=== PATIENT | male | born 1965 | race Caucasian/White ===

== ENCOUNTER 2022-07-18 10:01 | Emergency (ER) | payer MEDICAID, SELFPAY ==
[2022-07-18 10:16] VITALS: BP 135/86; PULSE 74; RESP 14; TEMP 36.9; O2SAT 98; BMI 24.3
[2022-07-18 11:00] LABS: Basophils % 0.5 %; Eosinophils # 0.1 10^3/uL (0.0-0.8); Eosinophils % 1.2 %; Hematocrit 41.7 % (42.0-52.0); Hemoglobin 14.2 g/dL (11.7-16.6); Lymphocytes # 0.8 10^3/uL (0.8-4.8); Lymphocytes % 9.4 %; Mean Corpuscular HGB Conc 34.1 g/dL (30.0-36.0); Mean Corpuscular Hemoglobin 32.5 pg (28.0-34.0); Mean Corpuscular Volume 95.4 fl (80-94); Mean Platelet Volume 9.7 fL (7.4-10.4); Monocytes # 0.8 10^3/uL (0.2-0.9); Monocytes % 9.5 %; Neutrophils # 6.63 10^3/uL (1.8-7.7); Neutrophils % 78.8 %; Nucleated Red Blood Cells % 0 %; Platelet Count 237 10^3/cmm (130-400); Red Blood Count 4.37 10^6/uL (4.1-5.3); Red Cell Distribution Width 11.5 % (12.1-15.1); White Blood Count 8.4 10^3/uL (4.0-10.0)
[2022-07-18 11:19] LABS: Anion Gap 15.5 (5-19); Blood Urea Nitrogen 8 mg/dL (6-20); Calcium 9.4 mg/dL (8.5-10.5); Carbon Dioxide 25 mmol/L (22-29); Chloride 103 mmol/L (98-107); Glomerular Filtration Rate 116.7 mL/min (90-130); Glucose 108 mg/dL (65-115); Osmolality Calculated 287 mOsm/kg (285-295); Potassium 4.5 mmol/L (3.5-5.1); Sodium 139 mmol/L (136-145)
--- NOTE | 2022-07-19 06:21 | W.ED.GIBLEED ---
HPI - GI Bleed General: Chief complaint: GI Bleed Stated complaint: Blood in stool Time Seen by Provider: 07/18/22 10:45 History of Present Illness: Patient was assigned to go to one of my rooms. I had signed up for the patient reviewed the nursing note in order basic initial labs patient left without being seen [facility] ED PFSH: Medical History (Updated 07/19/22 @ 00:39 by Ambreen Martínez MD) No pertinent past medical history Course Vital Signs: Vital signs: Vital Signs Temperature 98.5 F 07/18/22 10:16 Pulse Rate 74 07/18/22 10:16 Respiratory Rate 14 07/18/22 10:16 Blood Pressure 135/86 07/18/22 10:16 Pulse Oximetry 98 07/18/22 10:16 Oxygen Delivery Me thod 07/18/22 10:16 MDM - GI Bleed Medical Decision Making Patient left without being seen Lab Data 07/18/22 10:50 07/18/22 10:50 Laboratory Results WBC 8.4 10^3/uL (4.0-10.0) 07/18/22 10:50 RBC 4.37 10^6/uL (4.1-5.3) 07/18/22 10:50 Hgb 14.2 g/dL (11.7-16.6) 07/18/22 10:50 Hct 41.7 % (42.0-52.0) L 07/18/22 10:50 MCV 95.4 fl (80-94) H 07/18/22 10:50 MCH 32.5 pg (28.0-34.0) 07/18/22 10:50 MCHC 34.1 g/dL (30.0-36.0) 07/18/22 10:50 RDW 11.5 % (12.1-15.1) L 07/18/22 10:50 Plt Count 237 10^3/cmm (130-400) 07/18/22 10:50 MPV 9.7 fL (7.4-10.4) 07/18/22 10:50 Neut % (Auto) 78.8 % 07/18/22 10:50 Lymph % (Auto) 9.4 % 07/18/22 10:50 [place] % (Auto) 9.5 % 07/18/22 10:50 Eos % (Auto) 1.2 % 07/18/22 10:50 Baso % (Auto) 0.5 % 07/18/22 10:50 Neut # (Auto) 6.63 10^3/uL (1.8-7.7) 07/18/22 10:50 Lymph # (Auto) 0.8 10^3/uL (0.8-4.8) 07/18/22 10:50 [place] # (Auto) 0.8 10^3/uL (0.2-0.9) 07/18/22 10:50 Eos # (Auto) 0.1 10^3/uL (0.0-0.8) 07/18/22 10:50 Baso # (Auto) 0.0 10^3/uL (0.0-0.1) 07/18/22 10:50 Nucleated RBC % (auto) 0 % 07/18/22 10:50 Nucleated RBCs # 0.0 /100WBC 07/18/22 10:50 Sodium 139 mmol/L (136-145) 07/18/22 10:50 Potassium 4.5 mmol/L (3.5-5.1) 07/18/22 10:50 Chloride 103 mmol/L (98-107) 07/18/22 10:50 Carbon Dioxide 25 mmol/L (22-29) 07/18/22 10:50 Anion Gap 15.5 (5-19) 07/18/22 10:50 BUN 8 mg/dL (6-20) 07/18/22 10:50 Creatinine 0.7 mg/dL (0.7-1.2) 07/18/22 10:50 GFR Calculation 116.7 mL/min (90-130) 07/18/22 10:50 Glucose 108 mg/dL (65-115) 07/18/22 10:50 Calculated Osmolality 287 mOsm/kg (285-295) 07/18/22 10:50 Calcium 9.4 mg/dL (8.5-10.5) 07/18/22 10:50 Discharge Plan Discharge Patient Disposition: Left Without Being Seen 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
== END 2022-07-18 12:41 | disposition left against medical advice (07) ==
PROVIDERS: Physician Assistant; Emergency Provider Family Medicine; PCP Nurse Practitioner
DX: K92.1 Melena (principal); Z53.21 Procedure and treatment not carried out due to patient leaving prior to being seen by health care provider
CPT/HCPCS: 80048; 85025

== ENCOUNTER 2022-07-18 23:03 | Emergency (ER) | payer MEDICAID, SELFPAY ==
[2022-07-18 23:10] VITALS: BP 146/98; PULSE 88; RESP 18; TEMP 37.1; O2SAT 100; BMI 23.6
--- NOTE | 2022-07-18 23:25 | ED_ITS ---
HPI - Nausea/Vomiting/Diarrhea General: Chief complaint: Nausea/Vomiting/Diarrhea Stated complaint: blood in stool, fever Time Seen by Provider: 07/18/22 23:07 Source: patient Mode of arrival: ambulatory Limitations: no limitations History of Present Illness: 56-year-old male who states he has been having abdominal cramping along with diarrhea over the last 3 days he states that yesterday it was severe he states today is actually improving he said he had some very slight pinkish blood at times but none currently he had low-grade fevers he denies any worsening proving factors denies any sick contacts. Associated nausea: Yes Associated symtoms: Reports nausea; Denies chest pain, dysuria or headache(s) Review of Systems Const: Denies: fever(s), chills, body aches or change in appetite Eyes: Denies: blurry vision or eye discomfort ENMT: Denies: throat pain or dental pain Card: Denies: chest pain Resp: Denies: dyspnea GI: Reports: nausea and diarrhea : Denies: dysuria Musc: Denies: neck pain or back pain Skin/Breast: Denies: rash Neuro: Denies: headache(s) Psych: Denies: depression R[place]hawn/Lymph: Denies: easy bruising All/Imm: Denies: urticaria PFSH ED PFSH: Medical History (Updated 07/19/22 @ 00:39 by Ambreen Martínez MD) No pertinent past medical history Physical Exam Const: COMMON NORMALS: no acute distress, patient oriented x3 and healthy appearing HENMT: COMMON NORMALS: normocephalic and atraumatic HEAD & SCALP: normocephalic and atraumatic Eye: COMMON NORMALS: Equal, round and reactive pupils present and EOMs intact bilaterally PUPIL: Yes Equal, round and reactive pupils present Neck/C-Spine: COMMON NORMALS: full ROM and supple Chest: COMMONS NORMALS: normal inspection of the chest and normal palpation of entire chest wall Resp: COMMON NORMALS: normal respiratory effort, No retractions, No use of accessory muscles and clear to auscultation bilaterally AUSCULTATION: clear to auscultation bilaterally Cardio: COMMON NORMALS: regular rate, regular rhythm and No murmurs present (Cardio) RATE: regular rate RHYTHM: regular rhythm GI: COMMON NORMALS: Normal to inspection, nondistended, normoactive bowel sounds present, Soft to palpation, non-tender and no masses PALPATION: Yes Soft to palpation Extremity: COMMON NORMALS: normal to inspection and full ROM Neuro: COMMON NORMALS: patient oriented x3, moves all extremities and no focal motor deficits Psych: COMMON NORMALS: mental status grossly normal, Normal thought process present and cooperative THOUGHT PROCESS: Normal thought process present Skin: COMMON NORMALS: no rashes or lesions noted and no wounds GENERAL SKIN EXAM: no rashes or lesions noted Course Vital Signs: Vital signs: Vital Signs Temperature 98.7 F 07/19/22 00:14 Pulse Rate 88 07/19/22 00:14 Respiratory Rate 18 07/19/22 00:14 Blood Pressure 146/98 07/19/22 00:14 Pulse Oximetry 100 07/19/22 00:14 Oxygen Delivery Me thod 07/18/22 23:10 MDM - Nausea/Vomiting/Diarrhea Medical Decision Making Patient presents with diarrhea is likely viral in origin his white count and blood work is all normal we will send his stool for culture and C. difficile he stable for discharge at this point return if worsening Lab Data 07/18/22 23:55 07/18/22 23:55 Laboratory Results WBC 9.6 10^3/uL (4.0-10.0) 07/18/22 23:55 RBC 4.32 10^6/uL (4.1-5.3) 07/18/22 23:55 Hgb 14.7 g/dL (11.7-16.6) 07/18/22 23:55 Hct 40.6 % (42.0-52.0) L 07/18/22 23:55 MCV 94.0 fl (80-94) 07/18/22 23:55 MCH 34.0 pg (28.0-34.0) 07/18/22 23:55 MCHC 36.2 g/dL (30.0-36.0) H D 07/18/22 23:55 RDW 11.4 % (12.1-15.1) L 07/18/22 23:55 Plt Count 259 10^3/cmm (130-400) 07/18/22 23:55 MPV 10.4 fL (7.4-10.4) 07/18/22 23:55 Neut % (Auto) 78.4 % 07/18/22 23:55 Lymph % (Auto) 9.4 % 07/18/22 23:55 [place] % (Auto) 9.1 % 07/18/22 23:55 Eos % (Auto) 2.5 % 07/18/22 23:55 Baso % (Auto) 0.4 % 07/18/22 23:55 Neut # (Auto) 7.48 10^3/uL (1.8-7.7) 07/18/22 23:55 Lymph # (Auto) 0.9 10^3/uL (0.8-4.8) 07/18/22 23:55 [place] # (Auto) 0.9 10^3/uL (0.2-0.9) 07/18/22 23:55 Eos # (Auto) 0.2 10^3/uL (0.0-0.8) 07/18/22 23:55 Baso # (Auto) 0.0 10^3/uL (0.0-0.1) 07/18/22 23:55 Nucleated RBC % (auto) 0 % 07/18/22 23:55 Nucleated RBCs # 0.0 /100WBC 07/18/22 23:55 Sodium 140 mmol/L (136-145) 07/18/22 23:55 Potassium 4.1 mmol/L (3.5-5.1) 07/18/22 23:55 Chloride 103 mmol/L (98-107) 07/18/22 23:55 Carbon Dioxide 26 mmol/L (22-29) 07/18/22 23:55 Anion Gap 15.1 (5-19) 07/18/22 23:55 BUN 9 mg/dL (6-20) 07/18/22 23:55 Creatinine 0.7 mg/dL (0.7-1.2) 07/18/22 23:55 GFR Calculation 116.7 mL/min (90-130) 07/18/22 23:55 Glucose 103 mg/dL (65-115) 07/18/22 23:55 Calculated Osmolality 289 mOsm/kg (285-295) 07/18/22 23:55 Calcium 9.6 mg/dL (8.5-10.5) 07/18/22 23:55 Total Bilirubin 0.6 mg/dL (0.15-1.2) 07/18/22 23:55 AST 23 U/L (0-40) 07/18/22 23:55 ALT 17 U/L (0-41) 07/18/22 23:55 Alkaline Phosphatase 54 U/L (40-130) 07/18/22 23:55 Total Protein 7.6 g/dL (6.6-8.7) 07/18/22 23:55 Albumin 4.5 g/dL (3.5-5.2) 07/18/22 23:55 Globulin 3.1 g/dL (1.3-4.6) 07/18/22 23:55 Discharge Plan Discharge Patient Disposition: Home Clinical Impression: Diarrhea Condition: Stable Prescriptions: New dicyclomine 20 mg tablet 20 mg PO TID PRN (Reason: diarrhea) Qty: 20 0RF Discharge Orders: Discharge ED (Routine); Ordered 07/19/22 Ordered By: Ambreen Martínez Referrals: Brooklyn Barrios FNP [Primary Care Provider] - 1-3 days Discharge Diet: Advance as tolerated Discharge Activity: Resume usual activity Patient Instructions: Acute Diarrhea (ED) Coding Level of Care Code ED [employer] for [employer] Fwd Exam Comprehensive
[2022-07-18] MEDS: diphenoxylate/atropine Tablet 1 TAB PO (23:55)
[2022-07-18] MEDS: ondansetron 2 mg/ML SDV 2 mL 4 MG IVP (23:56)
[2022-07-18] MEDS: sodium chloride 0.9% 1,000 ML 999 ML IV (23:56)
[2022-07-19 00:14] VITALS: BP 146/98; PULSE 88; RESP 18; TEMP 37.1; O2SAT 100
[2022-07-19 00:17] LABS: Basophils % 0.4 %; Eosinophils # 0.2 10^3/uL (0.0-0.8); Eosinophils % 2.5 %; Hematocrit 40.6 % (42.0-52.0); Hemoglobin 14.7 g/dL (11.7-16.6); Lymphocytes # 0.9 10^3/uL (0.8-4.8); Lymphocytes % 9.4 %; Mean Corpuscular HGB Conc 36.2 g/dL (30.0-36.0); Mean Platelet Volume 10.4 fL (7.4-10.4); Monocytes # 0.9 10^3/uL (0.2-0.9); Monocytes % 9.1 %; Neutrophils # 7.48 10^3/uL (1.8-7.7); Neutrophils % 78.4 %; Nucleated Red Blood Cells % 0 %; Platelet Count 259 10^3/cmm (130-400); Red Blood Count 4.32 10^6/uL (4.1-5.3); Red Cell Distribution Width 11.4 % (12.1-15.1); White Blood Count 9.6 10^3/uL (4.0-10.0)
[2022-07-19 00:29] LABS: Alanine Aminotransferase 17 U/L (0-41); Albumin Level 4.5 g/dL (3.5-5.2); Alkaline Phosphatase 54 U/L (40-130); Anion Gap 15.1 (5-19); Aspartate Amino Transferase 23 U/L (0-40); Blood Urea Nitrogen 9 mg/dL (6-20); Calcium 9.6 mg/dL (8.5-10.5); Carbon Dioxide 26 mmol/L (22-29); Chloride 103 mmol/L (98-107); Globulin 3.1 g/dL (1.3-4.6); Glomerular Filtration Rate 116.7 mL/min (90-130); Glucose 103 mg/dL (65-115); Osmolality Calculated 289 mOsm/kg (285-295); Potassium 4.1 mmol/L (3.5-5.1); Sodium 140 mmol/L (136-145); Total Bilirubin 0.6 mg/dL (0.15-1.2); Total Protein 7.6 g/dL (6.6-8.7)
[2022-07-19 00:48] VITALS: BP 146/98; PULSE 88; RESP 18; TEMP 37.1; O2SAT 100
== END 2022-07-19 00:47 | disposition home or self-care (01) ==
PROVIDERS: Emergency Provider Emergency Medicine; PCP Nurse Practitioner Family
DX: R19.7 Diarrhea, unspecified (principal)
CPT/HCPCS: 80053; 85025; 87493; 87506; 96361; 96374; 99284; J2405; J7030

== ENCOUNTER 2023-05-19 15:07 | Outpatient (CLI) | payer BC, MEDICAID, SELFPAY ==
--- NOTE | 2023-05-19 15:16 | CT_ITS ---
WS: [id number] CT chest w con* [id number] HISTORY: HEMOPTYSIS TECHNIQUE: Axial imaging performed through the thorax. Coronal and sagittal reformats are submitted. All CT scans at [facility] use at least one of these dose optimization techniques: automated exposure control; mA and/or kV adjustment per patient size (includes targeted exams where dose is mat ched to clinical indication); or iterative reconstruction. CONTRAST: Omnipaque 350; 100 mL IV. DLP: 304.15 mGy.cm COMPARISON: None available. Lungs and central airway: Normal. No bronchiectasis. No mass or nodule. No pneumonia. Pleura: Normal. No pleural effusion. Heart and pericardium: Normal size heart with no pericardial effusion. Mediastinum and boris: No mediastinum or hilar adenopathy. Vessels: Normal size aortic and pulmonary artery. No coronary artery calcifications. Chest wall and lower neck: No soft tissue masses. Upper abdomen: Normal. Osseous structures: No destructive process. IMPRESSION: Negative chest CT. No pulmonary mass or nodules. No bronchiectasis.
[2023-05-19] MEDS: iohexol 350 mg/mL 500 mL Btl (per mL) IV (15:49)
== END 2023-05-19 15:08 | disposition home or self-care (01) ==
PROVIDERS: PCP Nurse Practitioner Family; Visit Provider Nurse Practitioner Family
DX: R04.2 Hemoptysis (principal)
CPT/HCPCS: 71260; Q9967

== ENCOUNTER 2023-08-05 13:07 | Outpatient (CLI) | payer BC, MEDICAID, SELFPAY ==
--- NOTE | 2023-08-05 13:13 | CT_ITS ---
WS: [id number] CT ABDOMEN AND PELVIS WITH CONTRAST HISTORY: RLQ DISCOMFORT TECHNIQUE: Imaging performed of the abdomen and pelvis with IV contrast. Single phase imaging of the abdomen. Coronal and sagittal reformats are submitted. All CT scans at [facility] use at [address] one of these dose optimization techniques: automated exposure control; mA and/or kV adjustment per patient size (includes targeted exams where dose is matched to clinical indication); or iterative re construction. IV CONTRAST: Omnipaque 350; 100 mL IV. Oral contrast: Yes. DLP: 306.76 mGy.cm COMPARISON: None available. Lower thorax: Lung bases are clear. Heart is normal size. 2 Liver/biliary system: Normal size with no intrahepatic dilatation. Gallbladder: Normal. No gallstones or wall thickening. No pericholecystic fluid. Pancreas: Normal size pancreas and pancreatic duct. No adjacent inflammation. Spleen: Normal size spleen. No mass or infarct. Adrenal glands: Normal. Right kidney: Normal. Left kidney: Normal. Aorta: Normal. Lymphadenopathy: None. Free fluid: None. GI tract: There is inflammatory process in the RIGHT lower quadrant. There is inflammation surroundin g the terminal ileum with mucosal thickening and edema. The appendix is not definitely identified. I suspect the appendix is within this inflammatory collection. There is no free fluid and no abscess. N o lymph nodes are identified. No obstructive pattern. Abdominal wall: Unremarkable abdominal wall. No hernia. Pelvis: No free fluid or adenopathy within the pelvis. Bones: Unremarkable. IMPRESSION: 1. Mild inflammatory process in the RIGHT lower quadrant involving the terminal ileum. The appendix is not definitely identified but I suspect this is within the inflammatory process. There is wall thi ckening and mild inflammation. Differential includes distal terminal ileitis with secondary inflammat ion of the appendix. Appendicitis is not completely excluded but there is no adjacent fluid collectio n. No abscess or free fluid at this time. 2. No GI tract obstruction. No renal obstruction. Notified Evelio Edwards MD at 08/05/2023 3:04 PM. Discussed findings with the patient prior to him leaving the radiology department. Dr. Edwards will c ontact him. Patient is aware to return to the emergency department if there is any change in symptoms or progression of symptoms.
[2023-08-05] MEDS: iohexol 350 mg/mL 500 mL Btl (per mL) IV (14:49)
[2023-08-05] MEDS: iohexol 350 mg/mL 500 mL Btl (per mL) PO (14:49)
== END 2023-08-05 13:08 | disposition home or self-care (01) ==
LOC: RAD 13:07
PROVIDERS: PCP Nurse Practitioner Family; Visit Provider Internal Medicine
DX: R10.31 Right lower quadrant pain (principal); R93.3 Abnormal findings on diagnostic imaging of other parts of digestive tract
CPT/HCPCS: 74177; Q9967

== ENCOUNTER 2023-11-21 10:44 | Emergency (ER) | payer BC, MEDICAID, SELFPAY ==
[2023-11-21 10:46] VITALS: BP 151/91; PULSE 72; RESP 14; TEMP 36.9; O2SAT 98
--- NOTE | 2023-11-21 10:49 | ECG_ITS ---
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 Measurements Intervals [place] Rate: 72 P: 73 VT: 151 QRS: 87 QRSD: 95 T: 67 QT: 361 QTc: 397 Interpretive Statements SINUS RHYTHM No previous ECG available for comparison Electronically Signed On 11-22-2023 18:35:50 CDT by Lesa Rivers M.D. [id number]
[2023-11-21 11:13] VITALS: BP 133/92; PULSE 86; RESP 16; O2SAT 100
--- NOTE | 2023-11-21 11:15 | PC.PHAR ---
PT STATES HAD HERNIA SURGERY LAST MONTH BUT ONLY TOOK A FEW PAIN MEDS AT THAT TIME. PT STATES ONLY USES TYLENOL AND IBUPROFEN FOR PAIN AND TAKES A MULTIVITAMIN AND PROBIOTIC. NO CURRENT MAINTENANCE MEDICATIONS.
--- NOTE | 2023-11-21 12:14 | XRR_ITS ---
PROCEDURE INFORMATION: Exam: XR Chest Exam date and time: 11/21/2023 12:36 PM Age: 58 years old Clinical indication: Other: Rapid heartrate; Arrythmia; No cardiac HX TECHNIQUE: Imaging protocol: Radiologic exam of the chest. Views: 1 view. COMPARISON: CT chest w con* [id number] 05/19/2023 3:46 PM FINDINGS: Lungs: Unremarkable. No consolidation. Pleural spaces: Unremarkable. No pleural effusion. No pneumothorax. Heart/Mediastinum: Unremarkable. No cardiomegaly. Bones/joints: Unremarkable. XR/XR chest 1V portable [id number] IMPRESSION: No acute findings.
[2023-11-21 12:44] LABS: Basophils % 0.7 %; Eosinophils # 0.1 10^3/uL (0.0-0.8); Eosinophils % 1.9 %; Hematocrit 43.2 % (37-53); Lymphocytes % 17.2 %; Mean Corpuscular HGB Conc 34.5 g/dL (30-55); Mean Corpuscular Hemoglobin 32.5 pg (27-33); Mean Corpuscular Volume 94.3 fl (82-101); Mean Platelet Volume 10.2 fL (7.4-10.4); Monocytes # 0.5 10^3/uL (0.2-0.9); Monocytes % 8.5 %; Neutrophils # 4.19 10^3/uL (1.8-7.7); Neutrophils % 71.5 %; Nucleated Red Blood Cells % 0 %; Platelet Count 259 10^3/cmm (157-399); Red Blood Count 4.58 10^6/uL (3.85-5.65); Red Cell Distribution Width 11.9 % (12.1-15.1); White Blood Count 5.86 10^3/uL (3.29-11.43)
[2023-11-21 13:04] LABS: Alanine Aminotransferase 16 U/L (0-41); Albumin Level 4.7 g/dL (3.5-5.2); Alkaline Phosphatase 51 U/L (40-130); Anion Gap 15.7 (5-19); Aspartate Amino Transferase 20 U/L (0-40); Blood Urea Nitrogen 9 mg/dL (6-20); Calcium 9.3 mg/dL (8.5-10.5); Carbon Dioxide 25 mmol/L (22-29); Chloride 105 mmol/L (98-107); Globulin 3.1 g/dL (1.3-4.6); Glomerular Filtration Rate 138.4 mL/min (90-130); Glucose 102 mg/dL (65-115); Osmolality Calculated 291 mOsm/kg (285-295); Potassium 4.7 mmol/L (3.5-5.1); Sodium 141 mmol/L (136-145); Total Bilirubin 1.3 mg/dL (0.15-1.2); Total Protein 7.8 g/dL (6.6-8.7)
--- NOTE | 2023-11-21 13:17 | ED_ITS ---
HPI - Arrhythmia/Palpitations 2 General: Chief Complaint: Arrhythmia/Palpitations Stated Complaint: increased hr Time Seen by Provider: 11/21/23 12:03 History of Present Illness: Patient presents to the ER with complaints of heart rate being mildly elevated as well as blood pressure. Patient states he noticed his heart rate has been in the 80s and 90s his blood pressure has been up in the 130s and 140s or normally runs in the heart rate in the 70s and blood pressure 120s over 80s. Patient does admit to having some anxiety. Patient admits to being a daily beer drinker however he says he only drinks a couple every day. Patient recently saw his nurse practitioner and had some labs андрей that he had with him that were all normal these included CBC CMP TSH free T4 T3 thyroid peroxidase. Review of Systems 2 General: Reports: 10 or more systems reviewed and unremarkable except in HPI and below PFSH ED 2 PFSH: Medical History No pertinent past medical history Physical Exam 2 Const: COMMON NORMALS: no acute distress, average body habitus, patient oriented x3, no limitations, healthy appearing, alert and well nourished HENMT: COMMON NORMALS: normocephalic, atraumatic, hearing grossly normal bilaterally, external ears normal, Normal external nose present, moist oral mucous membranes and oropharynx normal HEAD & SCALP: normocephalic and atraumatic NOSE: Normal external nose present EXTERNAL EAR: Yes external ears normal Neck/C-Spine: COMMON NORMALS: no JVD Chest: COMMONS NORMALS: normal inspection of the chest and normal palpation of entire chest wall Resp: COMMON NORMALS: normal respiratory effort, No retractions, No use of accessory muscles and clear to auscultation bilaterally AUSCULTATION: clear to auscultation bilaterally Cardio: COMMON NORMALS: no JVD, regular rate, regular rhythm, S1 normal heart sound present, S2 normal heart sound present, No gallops present (Cardio), No clicks present (Cardio), No murmurs present (Cardio) and No rub (Cardio) R ATE: regular rate RHYTHM: regular rhythm HEART SOUNDS: S1 normal heart sound present and S2 normal heart sound present GI: COMMON NORMALS: Normal to inspection, nondistended, normoactive bowel sounds present, Soft to palpation, non-tender, No hepatosplenomegaly present and no masses PALPATION: Yes Soft to palpation and Yes No hepatosplenomegaly present Neuro: COMMON NORMALS: patient oriented x3 SENSORIUM/ORIENTATION: Yes alert Course 2 Vital Signs: Vital signs: Vital Signs Temperature 98.4 F 11/21/23 14:04 Pulse Rate 78 11/21/23 14:04 Respiratory Rate 14 11/21/23 14:04 Blood Pressure 148/65 11/21/23 14:04 Pulse Oximetry 99 11/21/23 14:04 Oxygen Delivery Me thod Room Air 11/21/23 11:13 MDM - Arrhythmia/Palpitations Medical Decision Making Patient physical exam and work that included CBC CMP TSH EKG and chest x-ray all which was essentially benign. Patient be discharged home to follow-up with her PCP within next 7 to 10 days. Differential Diagnosis Unlikely palpitations, anxiety, sinus tachycardia, artial fibrillation, artial flutter, ventricular premature beats, supraventricular tachycardia, ventricular tachycardia or WPW Medical Records I reviewed the patient's medical records. Lab Data I reviewed the patient's lab results. 11/21/23 12:35 11/21/23 12:35 Radiology Impressions Chest X-Ray 11/21/23 12:14 IMPRESSION: No acute findings. Laboratory Results WBC 5.86 10^3/uL (3.29-11.43) 11/21/23 12:35 RBC 4.58 10^6/uL (3.85-5.65) 11/21/23 12:35 Hgb 14.90 g/dL (11.27-16.99) 11/21/23 12:35 Hct 43.2 % (37-53) 11/21/23 12:35 MCV 94.3 fl (82-101) 11/21/23 12:35 MCH 32.5 pg (27-33) 11/21/23 12:35 MCHC 34.5 g/dL (30-55) 11/21/23 12:35 RDW 11.9 % (12.1-15.1) L 11/21/23 12:35 Plt Count 259 10^3/cmm (157-399) 11/21/23 12:35 MPV 10.2 fL (7.4-10.4) 11/21/23 12:35 Neut % (Auto) 71.5 % 11/21/23 12:35 Lymph % (Auto) 17.2 % 11/21/23 12:35 [place] % (Auto) 8.5 % 11/21/23 12:35 Eos % (Auto) 1.9 % 11/21/23 12:35 Baso % (Auto) 0.7 % 11/21/23 12:35 Neut # (Auto) 4.19 10^3/uL (1.8-7.7) 11/21/23 12:35 Lymph # (Auto) 1.0 10^3/uL (0.8-4.8) 11/21/23 12:35 [place] # (Auto) 0.5 10^3/uL (0.2-0.9) 11/21/23 12:35 Eos # (Auto) 0.1 10^3/uL (0.0-0.8) 11/21/23 12:35 Baso # (Auto) 0.0 10^3/uL (0.0-0.1) 11/21/23 12:35 Nucleated RBC % (auto) 0 % 11/21/23 12:35 Nucleated RBCs # 0.0 /100WBC 11/21/23 12:35 Sodium 141 mmol/L (136-145) 11/21/23 12:35 Potassium 4.7 mmol/L (3.5-5.1) 11/21/23 12:35 Chloride 105 mmol/L (98-107) 11/21/23 12:35 Carbon Dioxide 25 mmol/L (22-29) 11/21/23 12:35 Anion Gap 15.7 (5-19) 11/21/23 12:35 BUN 9 mg/dL (6-20) 11/21/23 12:35 Creatinine 0.6 mg/dL (0.7-1.2) L 11/21/23 12:35 GFR Calculation 138.4 mL/min (90-130) H 11/21/23 12:35 Glucose 102 mg/dL (65-115) 11/21/23 12:35 Calculated Osmolality 291 mOsm/kg (285-295) 11/21/23 12:35 Calcium 9.3 mg/dL (8.5-10.5) 11/21/23 12:35 Total Bilirubin 1.3 mg/dL (0.15-1.2) H 11/21/23 12:35 AST 20 U/L (0-40) 11/21/23 12:35 ALT 16 U/L (0-41) 11/21/23 12:35 Alkaline Phosphatase 51 U/L (40-130) 11/21/23 12:35 Total Protein 7.8 g/dL (6.6-8.7) 11/21/23 12:35 Albumin 4.7 g/dL (3.5-5.2) 11/21/23 12:35 Globulin 3.1 g/dL (1.3-4.6) 11/21/23 12:35 All radiology interpretation(s) finalized by discharge EKG Data EKG 1: I personally reviewed and interpreted this EKG as follows: EKG interpretation date: 11/21/23 EKG interpretation time: 12:24 Interpretation: Ventricular rate 69 bpm, [place] interval 146, QRS duration 93, QTc of 400, sinus rhythm Other EKG comments: Chest X-Ray 11/21/23 12:14 IMPRESSION: No acute findings. Discharge Plan Discharge Patient Disposition: Home Clinical Impression: Anxiety Condition: Stable Prescriptions: No Action multivitamin Tablet 1 tab PO DAILY acetaminophen 500 mg Tablet 500 mg PO Q6H PRN (Reason: Pain) ibuprofen 200 mg Tablet 800 mg PO Q6H PRN (Reason: Pain) Probiotic 3 billion cell Capsule 3,000 mmu cells PO DAILY Rx Instructions: administer with a meal Discharge Orders: Discharge ED (Routine); Ordered 11/21/23 Ordered By: Jose Forte Referrals: Brooklyn Barrios FNP [Primary Care Provider] - 1 week Patient Instructions: Anxiety (ED) Activity Restrictions/Additional Instructions: Your evaluation in the ER included physical exam, chest x-ray, lab work all which was essentially benign. Your blood pressure was slightly elevated however this may be due to anxiety and whitecoat syndrome. Please follow-up with your primary care practitioner for further evaluation testing as needed. Coding Level of Care Code ED Inspector [employer] for Jim Platt
[2023-11-21 13:21] LABS: Creatinine Clr Calc Pharmacy 134.7252
[2023-11-21 14:04] VITALS: BP 148/65; PULSE 78; RESP 14; TEMP 36.9; O2SAT 99
== END 2023-11-21 14:03 | disposition home or self-care (01) ==
PROVIDERS: Emergency Provider Emergency Medicine; PCP Nurse Practitioner Family
DX: F41.9 Anxiety disorder, unspecified (principal)
CPT/HCPCS: 36415; 71045; 80053; 85025; 93005; 99285

== ENCOUNTER 2024-06-20 15:52 | Outpatient (CLI) | payer BC, MEDICAID, SELFPAY ==
--- NOTE | 2024-06-20 15:59 | XRR_ITS ---
PROCEDURE INFORMATION: Exam: XR Chest Exam date and time: 06/20/2024 4:13 PM Age: 58 years old Clinical indication: Condition or disease; Other: Costochondritis TECHNIQUE: Imaging protocol: Radiologic exam of the chest. Views: 2 views. COMPARISON: CR XR chest 1V portable [id number] 11/21/2023 12:36 PM FINDINGS: Lungs: Unremarkable. No consolidation. Pleural spaces: Unremarkable. No pleural effusion. No pneumothorax. Heart/Mediastinum: Unremarkable. No cardiomegaly. Bones/joints: Unremarkable. XR/XR chest 2V* [id number] IMPRESSION: No acute findings.
== END 2024-06-20 15:53 | disposition home or self-care (01) ==
PROVIDERS: PCP Nurse Practitioner Family; Visit Provider Nurse Practitioner Family
DX: M94.0 Chondrocostal junction syndrome [Tietze] (principal)
CPT/HCPCS: 71046

== ENCOUNTER 2024-06-26 10:24 | Emergency (ER) | payer BC, MEDICAID, SELFPAY ==
[2024-06-26 10:30] VITALS: BP 147/93; PULSE 79; RESP 18; TEMP 36.6; O2SAT 99
--- NOTE | 2024-06-26 10:36 | CTR_ITS ---
PROCEDURE INFORMATION: Exam: CT Abdomen And Pelvis With Contrast Exam date and time: 06/26/2024 12:20 PM Age: 58 years old Clinical indication: Abdominal pain; Localized; Right lower quadrant (rlq); Additional info: Rlq pain TECHNIQUE: Imaging protocol: Computed tomography of the abdomen and pelvis with contrast. Radiation optimization: All CT scans at this facility use at least one of these dose optimization techniques: automated exposure control; mA and/or kV adjustment per patient size (includes targeted exams where dose is matched to clinical indication); or iterative reconstruction. Contrast material: OMNI 350; Contrast volume: 100 ml; Contrast route: INTRAVENOUS (IV); COMPARISON: CT abdomen pelvis w con* [id number] 08/05/2023 2:28 PM RADIATION DOSE METRICS: Total DLP (mGy-cm): 409.31 FINDINGS: Liver: Normal. No mass. Gallbladder and biliary ducts: Normal. No calcified stones. No ductal dilation. Pancreas: Normal. No ductal dilation. Spleen: Normal. No splenomegaly. Adrenal glands: Normal. No mass. Kidneys and ureters: Normal. No hydronephrosis. Stomach and bowel: Unremarkable. No obstruction. No mucosal thickening. Appendix: No evidence of appendicitis. Intraperitoneal space: Unremarkable. No free air. No significant fluid collection. Vasculature: Unremarkable. No abdominal aortic aneurysm. Lymph nodes: Unremarkable. No enlarged lymph nodes. Urinary bladder: Unremarkable as visualized. Reproductive: Unremarkable as visualized. Bones/joints: Unremarkable. No acute fracture. Soft tissues: Unremarkable. CT/CT abdomen pelvis w con* [id number] IMPRESSION: No acute findings.
--- NOTE | 2024-06-26 10:36 | ED_ITS ---
HPI - Abdominal Pain 2 General: Chief Complaint: Abdominal Pain Stated Complaint: right lower abd pain Time Seen by Provider: 06/26/24 10:30 Source: patient Mode of arrival: ambulatory Limitations: no limitations History of Present Illness: 58-year-old male states he was having ri ght lower quadrant abdominal pain over the last few days. States pain sharp in nature states it has been a 3 out of 10 he denies any vomiting denies any fever denies any dysuria. Associated Symptoms: Denies chills, diarrhea, dysuria, fever(s), nausea and vomiting Related Data Home Medications Medication Instructions Recorded Confirmed acetaminophen 500 mg tablet 500 mg PO Q6H PRN Pain 11/21/23 11/21/23 ibuprofen 200 mg tablet 800 mg PO Q6H PRN Pain 11/21/23 11/21/23 lactobacillus combination no.4 3 3,000 mmu cells PO DAILY 11/21/23 11/21/23 billion cell capsule (Probiotic) multivitamin 1 tab PO DAILY 11/21/23 11/21/23 Allergies Allergy/AdvReac Type Severity Reaction Status Date / Time ciprofloxacin [From Cipro] Allergy Unknown Verified 07/18/22 10:16 moxifloxacin [From Avelox] Allergy ADR/ALGY-Pa Verified 07/18/22 10:16 lpitations Review of Systems 2 Const: Denies: fever(s), chills, body aches or change in appetite ENMT: Denies: throat pain or dental pain Card: Denies: chest pain Resp: Denies: dyspnea GI: Reports: abdominal pain; Denies: nausea, vomiting or diarrhea : Denies: dysuria Musc: Denies: neck pain or back pain Skin/Breast: Denies: rash Neuro: Denies: headache(s) PFSH ED 2 PFSH: Medical History No pertinent past medical history Physical Exam 2 Const: COMMON NORMALS: no acute distress, patient oriented x3 and healthy appearing HENMT: COMMON NORMALS: normocephalic and atraumatic HEAD & SCALP: n ormocephalic and atraumatic Neck/C-Spine: COMMON NORMALS: full ROM and supple Chest: COMMONS NORMALS: normal inspection of the chest Resp: COMMON NORMALS: normal respiratory effort Cardio: COMMON NORMALS: regular rate, regular rhythm and No murmurs present (Cardio) RATE: regular rate RHYTHM: regular rhythm GI: COMMON NORMALS: Normal to inspection, nondistended, normoactive bowel sounds present, Soft to palpation and no masses PALPATION: Yes Soft to palpation and Yes Tenderness to palpation present (GI) Details: RLQ (mild) Extremity: COMMON NORMALS: normal to inspection and full ROM Neuro: COMMON NORMALS: patient oriented x3, moves all extremities and no focal motor deficits Psych: COMMON NORMALS: mental status grossly normal, Normal thought process present and cooperative THOUGHT PROCESS: Normal thought process present Skin: COMMON NORMALS: no rashes or lesions noted and no wounds GENERAL SKIN EXAM: no rashes or lesions noted Course 2 Vital Signs: Vital signs: Vital Signs Temperature 97.8 F 06/26/24 10:30 Pulse Rate 79 06/26/24 10:30 Respiratory Rate 18 06/26/24 10:30 Blood Pressure 147/93 06/26/24 10:30 Pulse Oximetry 99 06/26/24 10:30 Oxygen Delivery Me thod Room Air 06/26/24 10:30 MDM - Abdominal Pain Medical Decision Making Patient presents here with abdominal pain blood work CT scan here is negative he is stable for discharge his follow-up with PCP return if worsening. Medical Records I reviewed the patient's medical records. Lab Data I reviewed the patient's lab results. 06/26/24 10:38 06/26/24 10:38 Labs/Radiology: Radiology Impressions Abdomen/Pelvis CT 06/26/24 10:36 IMPRESSION: No acute findings. Laboratory Results WBC 4.36 10^3/uL (3.29-11.43) 06/26/24 10:38 RBC 4.75 10^6/uL (3.85-5.65) 06/26/24 10:38 Hgb 15.20 g/dL (11.27-16.99) 06/26/24 10:38 Hct 44.6 % (37-53) 06/26/24 10:38 MCV 93.9 fl (82-101) 06/26/24 10:38 MCH 32.0 pg (27-33) 06/26/24 10:38 MCHC 34.1 g/dL (30-55) 06/26/24 10:38 RDW 11.9 % (12.1-15.1) L 06/26/24 10:38 Plt Count 261 10^3/cmm (157-399) 06/26/24 10:38 MPV 10.1 fL (7.4-10.4) 06/26/24 10:38 Neut % (Auto) 61.3 % 06/26/24 10:38 Lymph % (Auto) 24.1 % 06/26/24 10:38 [place] % (Auto) 8.9 % 06/26/24 10:38 Eos % (Auto) 4.4 % 06/26/24 10:38 Baso % (Auto) 1.1 % 06/26/24 10:38 Neut # (Auto) 2.67 10^3/uL (1.8-7.7) 06/26/24 10:38 Lymph # (Auto) 1.1 10^3/uL (0.8-4.8) 06/26/24 10:38 [place] # (Auto) 0.4 10^3/uL (0.2-0.9) 06/26/24 10:38 Eos # (Auto) 0.2 10^3/uL (0.0-0.8) 06/26/24 10:38 Baso # (Auto) 0.1 10^3/uL (0.0-0.1) 06/26/24 10:38 Nucleated RBC % (auto) 0 % 06/26/24 10:38 Nucleated RBCs # 0.0 /100WBC 06/26/24 10:38 Sodium 139 mmol/L (136-145) 06/26/24 10:38 Potassium 4.5 mmol/L (3.5-5.1) 06/26/24 10:38 Chloride 104 mmol/L (98-107) 06/26/24 10:38 Carbon Dioxide 24 mmol/L (22-29) 06/26/24 10:38 Anion Gap 15.5 (5-19) 06/26/24 10:38 BUN 11 mg/dL (6-20) 06/26/24 10:38 Creatinine 0.7 mg/dL (0.7-1.2) 06/26/24 10:38 GFR Calculation 115.8 mL/min (90-130) 06/26/24 10:38 Glucose 107 mg/dL (65-115) 06/26/24 10:38 Calculated Osmolality 288 mOsm/kg (285-295) 06/26/24 10:38 Calcium 8.8 mg/dL (8.5-10.5) 06/26/24 10:38 Total Bilirubin 1.2 mg/dL (0.15-1.2) 06/26/24 10:38 AST 24 U/L (0-40) 06/26/24 10:38 ALT 19 U/L (0-41) 06/26/24 10:38 Alkaline Phosphatase 55 U/L (40-130) 06/26/24 10:38 Total Protein 7.3 g/dL (6.6-8.7) 06/26/24 10:38 Albumin 4.6 g/dL (3.5-5.2) 06/26/24 10:38 Globulin 2.7 g/dL (1.3-4.6) 06/26/24 10:38 Lipase 32 U/L (13-60) 06/26/24 10:38 Urine Color Yellow (Yellow) 06/26/24 11:00 Urine Appearance Clear (CLEAR) 06/26/24 11:00 Urine pH 7.0 (5-7) 06/26/24 11:00 Ur Specific [place] 1.006 (1.005-1.030) 06/26/24 11:00 Urine Protein Negative (Negative) 06/26/24 11:00 Urine Glucose (UA) Negative (Normal) 06/26/24 11:00 Urine Ketones Negative (Negative) 06/26/24 11:00 Urine Blood Negative (Negative) 06/26/24 11:00 Urine Nitrate Negative (Negative) 06/26/24 11:00 Urine Bilirubin Negative (Negative) 06/26/24 11:00 Urine Urobilinogen 0.2 mg/dL (Negative) 06/26/24 11:00 Ur Leukocyte Esterase Negative (Negative) 06/26/24 11:00 Urine RBC 0-2 /hpf (0-2) 06/26/24 11:00 Urine WBC 0-5 /hpf (0-5) 06/26/24 11:00 Ur Squamous Epith Cells 0-5 /hpf (0-5) 06/26/24 11:00 Amorphous Sediment Not Reportable 06/26/24 11:00 Urine Bacteria None seen /hpf (NONE) 06/26/24 11:00 Hyaline Casts 0-4 /lpf H 06/26/24 11:00 All radiology interpretation(s) finalized by discharge Discharge Plan Discharge Patient Disposition: Home Clinical Impression: Abdominal pain Condition: Stable Prescriptions: No Action multivitamin Tablet 1 tab PO DAILY acetaminophen 500 mg Tablet 500 mg PO Q6H PRN (Reason: Pain) ibuprofen 200 mg Tablet 800 mg PO Q6H PRN (Reason: Pain) Probiotic 3 billion cell Capsule 3,000 mmu cells PO DAILY Rx Instructions: administer with a meal Discharge Orders: Discharge ED (Routine); Ordered 06/26/24 Ordered By: Ambreen Martínez Referrals: Brooklyn Barrios FNP [Primary Care Provider] - 4-7 days Discharge Diet: Advance as tolerated Discharge Activity: Resume usual activity Patient Instructions: Abdominal Pain (ED) Coding Level of Care 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
[2024-06-26 10:44] LABS: Basophils # 0.1 10^3/uL (0.0-0.1); Basophils % 1.1 %; Eosinophils # 0.2 10^3/uL (0.0-0.8); Eosinophils % 4.4 %; Hematocrit 44.6 % (37-53); Lymphocytes # 1.1 10^3/uL (0.8-4.8); Lymphocytes % 24.1 %; Mean Corpuscular HGB Conc 34.1 g/dL (30-55); Mean Corpuscular Volume 93.9 fl (82-101); Mean Platelet Volume 10.1 fL (7.4-10.4); Monocytes # 0.4 10^3/uL (0.2-0.9); Monocytes % 8.9 %; Neutrophils # 2.67 10^3/uL (1.8-7.7); Neutrophils % 61.3 %; Nucleated Red Blood Cells % 0 %; Platelet Count 261 10^3/cmm (157-399); Red Blood Count 4.75 10^6/uL (3.85-5.65); Red Cell Distribution Width 11.9 % (12.1-15.1); White Blood Count 4.36 10^3/uL (3.29-11.43)
[2024-06-26 11:05] LABS: Alanine Aminotransferase 19 U/L (0-41); Albumin Level 4.6 g/dL (3.5-5.2); Alkaline Phosphatase 55 U/L (40-130); Anion Gap 15.5 (5-19); Aspartate Amino Transferase 24 U/L (0-40); Blood Urea Nitrogen 11 mg/dL (6-20); Calcium 8.8 mg/dL (8.5-10.5); Carbon Dioxide 24 mmol/L (22-29); Chloride 104 mmol/L (98-107); Creatinine Clr Calc Pharmacy 114.0028; Globulin 2.7 g/dL (1.3-4.6); Glomerular Filtration Rate 115.8 mL/min (90-130); Glucose 107 mg/dL (65-115); Lipase 32 U/L (13-60); Osmolality Calculated 288 mOsm/kg (285-295); Potassium 4.5 mmol/L (3.5-5.1); Sodium 139 mmol/L (136-145); Total Bilirubin 1.2 mg/dL (0.15-1.2); Total Protein 7.3 g/dL (6.6-8.7)
[2024-06-26 11:15] LABS: Bilirubin Urine Negative (Negative); Blood Urine Negative (Negative); Glucose Urine UA Negative (Normal); Ketones Urine Negative (Negative); Leukocyte Esterase Urine Negative (Negative); Nitrate Urine Negative (Negative); Protein Urine Negative (Negative); Specific Gravity, Urine 1.006 (1.005-1.030); Urine Appearance Clear (CLEAR); Urine Color Yellow (Yellow); Urobilinogen Urine 0.2 mg/dL (Negative)
[2024-06-26 11:17] LABS: Add Urine Microscopic? YES; Bacteria Urine None Seen /hpf; Hyaline Casts Urine 0-4 /lpf; RBC Urine 0-2 /hpf (0-2); Squamous Epithelial Cell Urine 0-5 /hpf (0-5); WBC Urine 0-5 /hpf (0-5)
[2024-06-26] MEDS: iohexol 350 mg/mL 500 mL Btl (per mL) IV (11:27)
[2024-06-26 12:14] VITALS: BP 123/82; PULSE 72; O2SAT 97
== END 2024-06-26 12:15 | disposition home or self-care (01) ==
PROVIDERS: Emergency Provider Emergency Medicine; PCP Nurse Practitioner Family
DX: R10.9 Unspecified abdominal pain (principal)
CPT/HCPCS: 74177; 80053; 81001; 83690; 85025; 99285

== ENCOUNTER 2024-09-19 15:04 | Outpatient (CLI) | payer MEDICAID, SELFPAY ==
--- NOTE | 2024-09-19 15:11 | XR_ITS ---
WS: [id number] Exam: XR cervical spine 3V* [id number] Date/Time of Exam: 09/19/2024 3:11 PM Reason For Exam: RIGHT NECK PAIN No acute fracture or malalignment noted. Facet DJD at all levels. Mild wedge deformity of T1 that cou ld represent an old low-grade compression fracture. Minimal spondylosis from C5-T1. Normal paraspinal soft tissues. The odontoid is intact. Slight degenerative disc narrowing at C6-7 and C7-T1. XR/XR cervical spine 3V* [id number] IMPRESSION: 1. Degenerative changes of the C-spine as noted above. No fracture or malalignm ent. 2. Mild wedge deformity of T1 that might represent an old healed low-grade comp ression fracture
== END 2024-09-19 15:05 | disposition home or self-care (01) ==
LOC: RAD 15:07
PROVIDERS: PCP Nurse Practitioner Family; Visit Provider Nurse Practitioner Family
DX: M54.2 Cervicalgia (principal); M48.54XA Collapsed vertebra, not elsewhere classified, thoracic region, initial encounter for fracture; M47.892 Other spondylosis, cervical region; X58.XXXA Exposure to other specified factors, initial encounter
CPT/HCPCS: 72040

== ENCOUNTER 2025-02-02 13:36 | Outpatient (CLI) | payer MEDICAID, SELFPAY ==
--- NOTE | 2025-02-02 13:40 | XR_ITS ---
WS: [id number] KUB, AP view, 02/02/2025 Clinical Data: L FLANK PAIN/LLQ ABD PAIN Comparison: None. Findings: No abnormal intraabdominal masses or calcifications are seen. There is no dilatated small bowel or evidence of obstruction. 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 XR/XR KUB [id number] Impression: Negative KUB.
== END 2025-02-02 13:37 | disposition home or self-care (01) ==
LOC: RAD 13:39
PROVIDERS: PCP Nurse Practitioner Family; Visit Provider Nurse Practitioner Family
DX: R10.9 Unspecified abdominal pain (principal); R10.32 Left lower quadrant pain; M47.896 Other spondylosis, lumbar region
CPT/HCPCS: 74018

== ENCOUNTER 2025-02-07 06:38 | Outpatient (CLI) | payer MEDICAID, SELFPAY ==
--- NOTE | 2025-02-07 06:41 | US_ITS ---
WS: [id number] ULTRASOUND ABDOMEN CLINICAL INFORMATION: Left flank pain. LLQ pain COMPARISON: None. FINDINGS: Liver Size: Mild hepatomegaly Craniocaudal length: 16.3 cm. Echogenicity: Normal. Surface nodularity: None. Mass (size and location): None. Bile ducts Intrahepatic ducts: Normal. Common bile duct diameter: 0.5 cm. Gallbladder Normal. Gallstones: None. Gallbladder sludge: None. Gallbladder wall thickening: None. Pericholecystic fluid: None. Sonographic House sign: Absent. Pancreas Normal as visualized. Spleen Splenomegaly: None. Craniocaudal length: 11.1 cm. Right kidney: Normal. Hydronephrosis: None. Size: 10.6 cm x 4.6 cm x 4.8 cm Left kidney: Normal. Hydronephrosis: None. Size: 10.8 cm x 4.7 cm x 4.5 cm. Abdominal aorta and IVC Visualized portions are normal. Ascites: None. US/US abdomen complete* [id number] IMPRESSION: 1. Hepatomegaly. 2. Normal gallbladder. 3. No other acute findings.
== END 2025-02-07 06:39 | disposition home or self-care (01) ==
PROVIDERS: PCP Nurse Practitioner Family; Visit Provider Nurse Practitioner Family
DX: R16.0 Hepatomegaly, not elsewhere classified (principal); R10.32 Left lower quadrant pain
CPT/HCPCS: 76700

== ENCOUNTER → 2025-07-25 15:54 | Outpatient (BNVA) | payer MEDICAID, SELFPAY | PROVIDERS: PCP Nurse Practitioner Family; Visit Provider Nurse Practitioner | DX: Z13.6 Encounter for screening for cardiovascular disorders (principal) | CPT/HCPCS: 80053; 80061; 85025 ==

== ENCOUNTER 2025-08-07 14:24 | Outpatient (CLI) | payer MEDICAID, SELFPAY ==
--- NOTE | 2025-08-07 14:30 | MR_ITS ---
WS: [id number] MRI CERVICAL SPINE NONCONTRAST HISTORY: M54.12 - Radiculopathy, cervical region COMPARISON: None available. Technique: Multiplanar, multisequence noncontrast imaging of the cervical spine. Mild straightening of the normal cervical lordosis. 3 mm anterolisthesis of C3. The spaces are narrowed and mildly desiccated. Marrow edema noted bilaterally within the C3 and C4 facets much greater on the RIGHT as compared to the LEFT. There is a small amount of adjacent fluid. No edema within the vertebral bodies. Craniocervical junction, C1 and C2 relationship, odontoid process and soft tissues are normal. C2-C3: Small bilateral foraminal osteophytes. Small amount of fluid involving the LEFT C2-3 facet joint. Mild LEFT foraminal stenosis. C3-C4: Mild disc bulging. Significant amount of fluid surrounding the RIGHT facet joint and the soft tissues. Small amount of fluid involving the facet joints on the LEFT. Mild bilateral foraminal stenosis. C4-C5: Diffuse disc bulging with a central disc protrusion. No high-grade stenosis. There is mild encroachment upon the ventral thecal sac by the disc. C5-C6: Mild disc bulging. No significant stenosis. C6-C7: Annular disc bulging with osteophytic ridging. Bilateral facet arthritis. Mild central with moderate bilateral foraminal stenosis due to disc osteophyte complexes. C7-T1: No stenosis. T1-2: Small central disc protrusion. No stenosis. Paraspinal soft tissue are normal. MR/MR cervical spin wo con* [id number] IMPRESSION: 1. No high-grade central stenosis. 2. C3 anterolisthesis by 3 mm. 3. Mild central with moderate bilateral foraminal stenosis at C6-7 due to disc osteophyte disease. 4. Small central disc protrusion at C4-5 with mild encroachment upon the ventr al thecal sac. 5. Mild bilateral foraminal stenosis at C3-4 and on the LEFT at C2-3. 6. Significant facet joint synovitis noted bilaterally at C2-3 and C3-4. 7. Largest amount of synovitis and inflammation is on the RIGHT involving the facets and dhara facet soft tissues of C3-4.
== END 2025-08-07 14:25 | disposition home or self-care (01) ==
LOC: RAD 14:25
PROVIDERS: PCP Family Medicine; Visit Provider Family Medicine
DX: M47.22 Other spondylosis with radiculopathy, cervical region (principal); M48.02 Spinal stenosis, cervical region; M50.11 Cervical disc disorder with radiculopathy, high cervical region; M50.121 Cervical disc disorder at C4-C5 level with radiculopathy; M50.122 Cervical disc disorder at C5-C6 level with radiculopathy; M50.123 Cervical disc disorder at C6-C7 level with radiculopathy; M25.78 Osteophyte, vertebrae
CPT/HCPCS: 72141